=== PATIENT | female | born 1985 | race Caucasian/White ===

== ENCOUNTER → 2021-04-09 15:05 | Outpatient (BNVA) | payer BC, OTHER, SELFPAY | PROVIDERS: Family Provider Family Medicine; PCP Family Medicine; Visit Provider Nurse Practitioner Family | DX: E03.9 Hypothyroidism, unspecified (principal); R63.5 Abnormal weight gain; L85.3 Xerosis cutis; R53.83 Other fatigue; R53.1 Weakness; R00.2 Palpitations; R42 Dizziness and giddiness; R13.10 Dysphagia, unspecified; R49.0 Dysphonia | CPT/HCPCS: 80053; 84439; 84443; 84481; 85025 ==

== ENCOUNTER 2021-04-24 08:40 | Outpatient (CLI) | payer BC, SELFPAY ==
--- NOTE | 2021-04-24 08:45 | US_ITS ---
WS: [id number] THYROID ULTRASOUND HISTORY: R13.10 - Dysphagia, unspecified COMPARISON: None available. Right lobe: 1.2 cm x 1.2 cm x 4.0 cm (w x ap x l). Volume: 2.9 cm3. Normal size and echotexture. No significant are dominant nodules are present. Left lobe: 1.1 cm x 1.0 cm x 4.0 cm (w x ap x l). Volume: 2.3 cm3. Normal size and echotexture. No significant or dominant nodules are present. Isthmus: 0.2 cm. US/US thyroid [id number] IMPRESSION: Normal thyroid ultrasound.
== END 2021-04-24 08:41 | disposition home or self-care (01) ==
LOC: US 08:42
PROVIDERS: PCP Nurse Practitioner Family; Visit Provider Nurse Practitioner Family
DX: R13.10 Dysphagia, unspecified (principal)
CPT/HCPCS: 76536

== ENCOUNTER → 2021-05-28 11:35 | Outpatient (BNVA) | payer BC, SELFPAY | PROVIDERS: PCP Nurse Practitioner Family; Visit Provider Nurse Practitioner Family | DX: Z20.822 Contact with and (suspected) exposure to COVID-19 (principal); J40 Bronchitis, not specified as acute or chronic; R05.9 Cough, unspecified | CPT/HCPCS: 87635 ==